=== PATIENT | male | born 1960 | race Two or more races ===

== ENCOUNTER 2018-08-04 14:35 | Outpatient (CLI) | payer MEDICAID ==
[~2018-08-04 14:35] MED LIST: UNOBMED
--- NOTE | 2018-08-05 13:13 | General Progress Note ---
Assessment/Plan Problem List: (1) HP positive gastritis (2) GERD (gastroesophageal reflux disease) ICD Codes: K21.9 - Gastro-esophageal reflux disease without esophagitis SNOMED: 652081265 (3) Dysphagia ICD Codes: R13.10 - Dysphagia, unspecified SNOMED: 82102874, 597532501 Assessment/Plan: treat for HP RTC 3 months for BT Subjective ROS Limited/Unobtainable: Yes Allergies: Coded Allergies: No Known Allergies (Unverified , 03/15/18) Objective General Appearance: alert EENT: normal ENT inspection Neck: supple Cardiovascular: normal rate Respiratory/Chest: lungs clear Abdomen: normal bowel sounds, non tender, soft Extremities: non-tender Nakul Lopez MD August 05, 2018 13:13
== END 2018-08-04 15:55 | disposition home or self-care (01) ==
LOC: PAN 14:35
DX: K29.70 Gastritis, unspecified, without bleeding (principal); B96.81 Helicobacter pylori [H. pylori] as the cause of diseases classified elsewhere; K21.9 Gastro-esophageal reflux disease without esophagitis; R13.10 Dysphagia, unspecified